=== PATIENT | female | born 1965 | race Two or more races ===

== ENCOUNTER 2016-07-09 18:40 | Emergency (ER) | payer MEDICAID ==
[~2016-07-09] VITALS: Ht 162.6 cm; Wt 86.2 kg
[~2016-07-09 18:40] MED LIST: LEVO100T8; METF-312 PO
[2016-07-09 19:18] LABS: Basophils # (auto) 0.1 uL; Basophils % (auto) 0.5 % (0.0-2.0); Eosinophils # (auto) 0.1 uL; Eosinophils % (auto) 0.8 % (0.0-7.0); Hematocrit 46.3 % (36.0-46.0); Hemoglobin 15.8 g/dL (12.2-16.2); Lymphocytes # (auto) 2.3 uL; Lymphocytes % (auto) 19.4 % (10.0-50.0); Mean Corpuscular Hemoglobin 32.2 pg (28.0-32.0); Mean Corpuscular Hgb Conc. 34.1 g/dL (32.0-36.0); Mean Corpuscular Volume 94.6 fL (80.0-100.0); Mean Platelet Volume 9.5 fL (7.4-10.4); Monocytes # (auto) 0.7 uL; Monocytes % (auto) 5.6 % (0.0-12.0); Neutrophils # (auto) 8.7 uL; Neutrophils % (auto) 73.7 % (37.0-80.0); Platelet Count (auto) 244 10^3/uL (140-450); White Blood Cell 11.7 10^3/uL (4.4-10.8)
[2016-07-09 19:33] LABS: Albumin 3.6 g/dL (3.4-5.0); Anion Gap 12 (5-15); Aspartate Aminotransferase 18 U/L (15-37); BUN/Creatinine Ratio 18.3; Blood Urea Nitrogen 15 mg/dL (7-18); Calcium 9.1 mg/dL (8.5-10.1); Carbon Dioxide 23 mmol/L (21-32); Chloride 105 mmol/L (98-107); GFR African American 94 mL/min; GFR Non-African American 78 mL/min; Glucose 205 mg/dL (74-106); Magnesium 2.1 mg/dL (1.6-2.6); Potassium 3.7 mmol/L (3.5-5.1); Sodium 140 mmol/L (136-145)
[2016-07-09 20:06] LABS: Alkaline Phosphatase 123 U/L (45-117); Bilirubin, Total 0.4 mg/dL (0.2-1.0); Total Protein 7.4 g/dL (6.4-8.2)
[2016-07-09 20:11] LABS: INR 0.9 (0.9-1.15); Prothrombin Time 9.8 sec (9.37-12.3)
[2016-07-09] MEDS ORDERED: ONDANSETRON ODT 4 MG TAB PO ONE (20:30)
[2016-07-09] MEDS ORDERED: HYDROcodone-ACET 5/325MG TAB PO ONE (20:30)
[2016-07-09 20:40] VITALS: BP 177/112
[2016-07-09] MEDS ORDERED: IOHEXOL 300 MG/ML 100ML BOTTLE IJ ONE (20:58)
== END 2016-07-09 23:05 | disposition home or self-care (01) ==
LOC: ER 18:40 → EDBD 18:40 → ER 23:05
DX: S09.90XA Unspecified injury of head, initial encounter (principal); R07.89 Other chest pain; E11.9 Type 2 diabetes mellitus without complications; E07.9 Disorder of thyroid, unspecified; M25.511 Pain in right shoulder; Z98.51 Tubal ligation status; V43.62XA Car passenger injured in collision with other type car in traffic accident, initial encounter; Y93.89 Activity, other specified; Y92.89 Other specified places as the place of occurrence of the external cause; Y99.8 Other external cause status
CPT/HCPCS: 36415; 70450; 71010; 71260; 72125; 80053; 83735; 84484; 85025; 85610; 93005; 94761; 99285; Q0162; Q9967